=== PATIENT | male | born 1945 | race Caucasian/White ===

== ENCOUNTER 2018-11-15 14:00 | Outpatient (RCR) | payer SELFPAY ==
--- NOTE | 2018-11-15 08:13 | HP.PTEVAL_ITS ---
Patient's Visit Information RABIA LUGO is a 73 year old M referred to Physical Therapy by Ed Vick with a diagnosis of Lumbar fusion.. Date of Evaluation: 11/08/18 Physical Therapist: Neil Bauer DPT - Visit Plan Frequency: 2x /Week Duration: 6-8 weeks Plan: Start with core strengthening, BLE strengthening, HS stretching in aquatic setting. Progress fucntional mobility and lumbar ROM as tolerated. Pt. does not swim so tend to stay in shallow end of pool. - Subjective Findings: Pt is here today for his initial evaluation with diagnosis of multiple level fusion of lumbar spine. Pt. reports having surgery 3 weeks ago. 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 Pt. is aware of restrictions since surgery and reprots he has been adhering to them. Pt. has minimal pain 2/10 since surgery. Pt. has a history of 3 lumbar spin surgeries. Pt. reports no N/T in either LE. Pt. - Pain Lumbar spine Pain Intensity (Out of 10): 2 Pain Intensity Range: 1, 4 - Objective POSTURE: Pt. has slight flexed posture. Pt. has normal iliac crest heights. Pt. has slight anterior tilt of pelvis. WIde DAREN in stance. PALPATION: Pt. has 10 incisions in lumbar spine, all appear to be healed, No signs of infection. Pt. has mild tenderness along lumbar spine. NEURO: all intact, normal sensation and normal DTR of BLEs. Pt. is able to rise on heels and toes without LOB. ROM: Pt. has normal ankle and knee ROM. Pt. has tight HS bilaterally. Pt. has mod loss of ROM of lumbar spine throuhgout. MMT: RLE- ankle- 5/5 throughout; knee- ext 4+/5, flexion 4+/5; hip- flexon 4/5, abd 4/5, ext 4/5. LLE- ankle 5/5 throughout; knee- ext 4+/5, flexion 4/5; hip- flexion 4/5, abd 4/5, ext 4/5. GAIT: Pt. ambulates without AD, but does have cane at home. Pt. has slight flexed posture with slight anterior tilf of his pelvis. Pt. is able to increase erect posture with VCing. Pt. has slight increase in DAREN. STAIRS: Pt. is able to complete with BHR and step to pattern. - Goals Goal 1:: Pt. to be I with HEP. Goal Time Frame: 6-8 Weeks Goal 2:: Pt. to have increased BLE and core strength by 1/2 grade of all effected musculature to reduce stress applied to lumbar spine with all functional mobility. Goal Time Frame: 6-8 Weeks Goal 3:: Pt. to sleep throughout the night without increase in symptoms. Goal Time Frame: 4-6 Weeks Goal 4:: Pt. to ambulate with out AD with improve gait pattern unlimited distances withotu increase in symptoms. Goal Time Frame: 4-6 Weeks Goal 5:: Pt. to have increased lumbar ROM by 25% in all directions without increase in symptoms. Goal Time Frame: 6-8 Weeks Goal 6:: Pt. to negotiate steps with 1 HR with reciprocal pattern without increase in symptoms. Goal Time Frame: 4-6 Weeks - Rehabilitation Potential Physical Therapy Diagnosis: Pt. has signs and symptoms consistent with multiple level lumbar fusion. Pt. has subsequent hypomobility, core/BLE weakness, imbalance. Pt. would benefit from PT to increase core stability, wean from brace, increased BLE strength and slowly increase lumbar ROM as tolerated. Start in aquatic setting, due to patient having a history of B knee OA and decreased core stability. Rehabilitation Potential: Good - Anticipated Interventions Patient/Client Instruction: Educate patient on: Condition, Plan of Care, Risk Factors, Benefits of Fitness Program For the Purpose of:: To improve safety, To improve health and function, To foster healthy habits, To improve decision making, To facilitate caregiver knowledge, To improve self management, To prevent re-injury, To improve ability to perform tasks related to life management, To improve tolerance to ADL's Therapeutic Exercise to Include: Strength training, Power training, Endurance training, Balance training, Coordination, Postural training, Flexibilty training, Gait and locomotor training, Passive ROM, Active ROM, Dynamic Lumbar Stabilization, Scapular Strength/Stabilization For the Purpose of:: To decrease pain, To increase ROM, To improve nutrient delivery to tissue, To increase oxygenation perfusion, To improve muscle performance and motor function, To improve ability to perform ADL's, To increase tolerance to activity/condition/position, To improve performance and independence with ADL's, To decrease level of supervision to perform tasks, To improve ability of physical actions for home/community/work/leisure, To improve gait and locomotor functions, To improve health of tissue, To decrease soft tissue restriction, To improve endurance, To improve balance, To improve safety with gait Thank you for the opportunity to evaluate your patient. For Medicare and Medicare HMO plans, please review the plan of care and approve it. It will need to be FAXED BACK to us at [phone] for Medicare purposes. For Medicare only, by signing this I certify the plan of care. Please let me know if there are questions or concerns regarding this plan of care. Physician Signature: Date:
--- OUTSIDE RECORDS SUMMARY | 2018-12-24 21:57 | XMS RPT_ITS ---
:1945 Author Organization OHIP Care Team Providers Name Role Phone ZA CARRERA Admitting Unavailable ZA CARRERA Attending Unavailable ZA CARRERA Primary Care Unavailable DELLA PATEL MD Consulting Unavailable PROVIDER, UNKNOWN Consulting Unavailable PROVIDER, UNKNOWN Consulting Unavailable PROVIDER, UNKNOWN Consulting Unavailable [facility] Admitting Unavailable [facility] Attending Unavailable [facility] Primary Care Unavailable DELLA PATEL MD Consulting Unavailable PROVIDER, UNKNOWN Consulting Unavailable PROVIDER, UNKNOWN Consulting Unavailable PROVIDER, UNKNOWN Consulting Unavailable DR VICKEY PATEL C Admitting Unavailable JORGE, DR VICKEY Loera Attending Unavailable JORGE, DELLA PEREA Referring Unavailable JORGE, DR VICKEY Loera Primary Care Unavailable JORGE, DELLA PEREA Consulting Unavailable PROVIDER, UNKNOWN Consulting Unavailable PROVIDER, UNKNOWN Consulting Unavailable PROVIDER, UNKNOWN Consulting Unavailable Debi, Za Attending Unavailable Debi, Za Referring Unavailable Della Patel Primary Care Unavailable Debi, Za Reagan Attending Unavailable Flood, Za A. Primary Care Unavailable Carmelo, Za A. Consulting Unavailable Debi, Za Reagan Admitting Unavailable Unavailable, Family Physician Attending Unavailable Flood, Za A. Primary Care Unavailable Flood, Za A. Consulting Unavailable Debi, Za Reagan Attending Unavailable Flood, Za A. Primary Care Unavailable Flood, Za A. Consulting Unavailable PROBLEMS PROBLEMS DATE TYPE CONDITION / CODE ATTENDING STATUS SOURCE 12/02/2018 Unknown Z98.1 - DebiaZ lai Diana Arthrodesis Community status / Hospital Z98.1(ICD-10) Repository 08/22/2018 Admitting Low back pain / DEBI, ZA Abel Active Flaco Pomerene Diagnosis M545(ICD-10) [facility] Repository 08/22/2018 Principle Low back pain / DEBI, ZA R Active Flaco Pomerene Diagnosis M545(ICD-10) [facility] Repository PROCEDURES PROCEDURES No Procedure Records FoundRESULTS RESULTS INITAL EVALUATION (1) Observed: 11/15/2018 Status: F Source: [place] - PT 8:13 AM [facility] REPOSITORY [facility] [address] [place] [address]. [address] [place] [address] Fax REHABILITATION SERVICES INITIAL EVALUATION MR#: [id number] Acct: [id number] Name: RABIA LUGO Rep #: [id number] : 1945 73 From: Neil Bauer DPT Referring Dr.: Za Carrera Status: REG RCR [facility] [employer] Patient's Visit Information RABIA LUGO is a 73 year old M referred to Physical Therapy by Za Carrera with a diagnosis of Lumbar fusion.. Date of Evaluation: 11/08/18 Physical Therapist: Neil Bauer, DPT - Visit Plan Frequency: 2x /Week Duration: 6-8 weeks Plan: Start with core strengthening, BLE strengthening, HS stretching in aquatic setting. Progress fucntional mobility and lumbar ROM as tolerated. Pt. does not swim so tend to stay in shallow end of pool. - Subjective Findings: Pt is here today for his initial evaluation with diagnosis of multiple level fusion of lumbar spine. Pt. reports having surgery 3 weeks ago. 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 Pt. is aware of restrictions since surgery and reprots he has been adhering to them. Pt. has minimal pain 2/10 since surgery. Pt. has a history of 3 lumbar spin surgeries. Pt. reports no N/T in either LE. Pt. - Pain Lumbar spine Pain Intensity (Out of 10): 2 Pain Intensity Range: 1, 4 - Objective POSTURE: Pt. has slight flexed posture. Pt. has normal iliac crest heights. Pt. has slight anterior tilt of pelvis. WIde DAREN in stance. PALPATION: Pt. has 10 incisions in lumbar spine, all appear to be healed, No signs of infection. Pt. has mild tenderness along lumbar spine. NEURO: all intact, normal sensation and normal DTR of BLEs. Pt. is able to rise on heels and toes without LOB. ROM: Pt. has normal ankle and knee ROM. Pt. has tight HS bilaterally. Pt. has mod loss of ROM of lumbar spine throuhgout. MMT: RLE- ankle- 5/5 throughout; knee- ext 4+/5, flexion 4+/5; hip- flexon 4/5, abd 4/5, ext 4/5. LLE- ankle 5/5 throughout; knee- ext 4+/5, flexion 4/5; hip- flexion 4/5, abd 4/5, ext 4/5. GAIT: Pt. ambulates without AD, but does have cane at home. Pt. has slight flexed posture with slight anterior tilf of his pelvis. Pt. is able to increase erect posture with VCing. Pt. has slight increase in DAREN. STAIRS: Pt. is able to complete with BHR and step to pattern. - Goals Goal 1:: Pt. to be I with HEP. Goal Time Frame: 6-8 Weeks Goal 2:: Pt. to have increased BLE and core strength by 1/2 grade of all effected musculature to reduce stress applied to lumbar spine with all functional mobility. Goal Time Frame: 6-8 Weeks Goal 3:: Pt. to sleep throughout the night without increase in symptoms. Goal Time Frame: 4-6 Weeks Goal 4:: Pt. to ambulate with out AD with improve gait pattern unlimited distances withotu increase in symptoms. Goal Time Frame: 4-6 Weeks Goal 5:: Pt. to have increased lumbar ROM by 25% in all directions without increase in symptoms. Goal Time Frame: 6-8 Weeks Goal 6:: Pt. to negotiate steps with 1 HR with reciprocal pattern without increase in symptoms. Goal Time Frame: 4-6 Weeks - Rehabilitation Potential Physical Therapy Diagnosis: Pt. has signs and symptoms consistent with multiple level lumbar fusion. Pt. has subsequent hypomobility, core/BLE weakness, imbalance. Pt. would benefit from PT to increase core stability, wean from brace, increased BLE strength and slowly increase lumbar ROM as tolerated. Start in aquatic setting, due to patient having a history of B knee OA and decreased core stability. Rehabilitation Potential: Good - Anticipated Interventions Patient/Client Instruction: Educate patient on: Condition, Plan of Care, Risk Factors, Benefits of Fitness Program For the Purpose of:: To improve safety, To improve health and function, To foster healthy habits, To improve decision making, To facilitate caregiver knowledge, To improve self management, To prevent re-injury, To improve ability to perform tasks related to life management, To improve tolerance to ADL's Therapeutic Exercise to Include: Strength training, Power training, Endurance training, Balance training, Coordination, Postural training, Flexibilty training, Gait and locomotor training, Passive ROM, Active ROM, Dynamic Lumbar Stabilization, Scapular Strength/Stabilization For the Purpose of:: To decrease pain, To increase ROM, To improve nutrient delivery to tissue, To increase oxygenation perfusion, To improve muscle performance and motor function, To improve ability to perform ADL's, To increase tolerance to activity/condition/position, To improve performance and independence with ADL's, To decrease level of supervision to perform tasks, To improve ability of physical actions for home/community/work/leisure, To improve gait and locomotor functions, To improve health of tissue, To decrease soft tissue restriction, To improve endurance, To improve balance, To improve safety with gait Thank you for the opportunity to evaluate your patient. For Medicare and Medicare HMO plans, please review the plan of care and approve it. It will need to be FAXED BACK to us at [phone] for Medicare purposes. For Medicare only, by signing this I certify the plan of care. Please let me know if there are questions or concerns regarding this plan of care. Physician Signature: Date: <Electronically signed by Neil Bauer DPT> 11/15/18 0813 CC: Della Patel MD; Za Carrera CLS Signed CV VENOUS LEG LT Observed: 10/18/2018 Status: F Source: [facility] [place] 10:20 AM [place] [address] Patient: RABIA LUGO Phone#: : 1945 Age: 73 Gender: M Pt. Type: ER Account: [id number] Location: [facility] Ordering: VICKEY PATEL Exam Date: 10/18/2018/10:57 Family Phys: DELLA PATEL Charge Code: [id number] Physician: Powell Order #: [id number] DLP Dose#: PROCEDURE: VENOUS DOPPLER LT LEG COMPARISON: None. INDICATIONS: Pain TECHNIQUE: Color duplex Doppler ultrasound evaluation analysis was performed in the usual manner. CLIENT RENEWAL SPECIALIST: ROZ RISK FACTORS FOR VENOUS DISEASE: Recent surgery Other Pain EXAMINATION: RIGHT +Present -Reduced o Absent LEFT SPONT PHASIC AUG REFLUX COMP SPONT PHASIC AUG REFLUX COMP + + + o + CFV + + + o + SFJ + FV (prox) + + + o + FV (mid) + FV (dist) + POP V + + + o + T/P TRUNK + + + o + PTV + + + o + PERONEAL V + + + o + GSV + GASTROC SOLEAL V Continued Report - Page 2 of 2 Patient: RABIA LUGO Phone#: : 1945 Age: 73 Gender: M Pt. Type: ER Account: [id number] Location: 052 Ordering: VICKEY PATEL Exam Date: 10/18/2018/10:57 Family Phys: DELLA PATEL Charge Code: [id number] Physician: Powell Order #: [id number] DLP Dose#: CLIENT RENEWAL SPECIALIST'S NOTES: FINDINGS: THROMBI: None visible. COMPRESSIBILITY: Normal. OTHER: Negative. CONCLUSION: 1. There is no evidence of superficial or deep vein thrombus. Dictated by: Vania Dean MD on 10/18/2018 at 10:26 Approved by: Vania Dean MD on 10/18/2018 at 10:26 EMERGENCY REPORT Observed: 10/18/2018 Status: F Source: [facility] 8:54 AM [facility] EMERGENCY ROOM REPORT NAME ACCOUNT SEX AGE ADMIT DISCHARGE PT MED. RECORD# NUMBER DATE DATE TYPE PARISH, [id number] M 73 10/18/18 10/18/18 3 RABIA L [id number] ROOM: ER DATE OF : 1945 DICTATING PHYSICIAN: Vickey Patel CHIEF COMPLAINT: Left hip and leg pain. HISTORY OF PRESENT ILLNESS: The patient states about 2-1/2 weeks ago he had lumbar fusion surgery to his lower back. Over the last 3 days, he has been having more pain to his left leg and hip area. He has not noticed swelling. It basically came on after he did more sitting the day before, as he went to a . He is concerned about the possibility of a blood clot, and his family doctor told him to go to the ED to rule out a blood clot. No injury or trauma. No bowel or bladder symptoms. The pain is radiating down the back of his leg. He is able to ambulate. No new injury or trauma. PAST MEDICAL HISTORY: Significant for hypertension. PAST SURGICAL HISTORY: Recent lumbar fusion surgery as mentioned. MEDICATIONS: Per medication reconciliation list, including Percocet for pain. ALLERGIES: Sulfa and Cipro. SOCIAL HISTORY: He is Christian and lives at home, accompanied here with his . He does not smoke or drink alcohol. PHYSICAL EXAMINATION: This is a 73-year-old pleasant male who is alert and appropriate. He does not appear toxic. His skin is pink, warm and dry. Vital signs: Temperature is 97, pulse 83, respirations 16, and blood pressure 168/78. His lungs are clear. Cardiac examination is normal. Examination of the back reveals healing incisions to the paralumbar area bilaterally. There is no redness, bruising, ecchymosis or soft tissue swelling. He does not have any drainage from those areas. No appreciable tenderness to that area. He is able to move his extremities appropriately. Deep tendon reflexes are quite diminished, trace bilaterally. He does not have any redness or swelling to his extremities. Generally good peripheral pulses and capillary refill. Abdomen is soft and nontender. DIAGNOSTIC DATA: We did proceed to get a left leg venous Doppler, which was negative for any DVT. EMERGENCY DEPARTMENT COURSE AND TREATMENT: I feel that this is probably Page 1 of 2 RABIA LUGO Emergency Room Report more inflammatory in nature and not likely infectious or cardiovascular related. I did give him a 3-day course of prednisone 40 mg daily. He is to follow up with his family physician or surgeon in the next 2 or 3 days if the symptoms persist, returning if symptoms get worse. DIAGNOSIS: Increasing postoperative pain. Dictated By: Vickey Patel MD 10/18/18 11:08 JOB #: [id number] Transcribed By: jayjay 10/18/18 11:29 Electronically signed by: GERRY Patel M.D. 10/21/18 07:29 Page 2 of 2 RABIA LUGO Emergency Room Report CBC W/DIFF Collected: 10/01/2018 Status: F Source: [facility] 5:38 AM [facility] REPOSITORY Order Comment: CONSERVATION TYPE CODE TESTS RESULT OUT OF RANGE REFERENCE UNITS LAB L200.98287 3.9-11.0 K/uL Normal WBC 9.2 LAB L200.44874 3.5-5.5 M/uL Normal RBC 3.69 LAB L200.16804 14.0-16.5 g/dL Low HGB 10.0 Result Comment: Delta: 12.4 on 09/24/18-1318 LAB L200.87075 39.0-55.0 % Low HCT 31.5 LAB L200.95245 80.0-100.0 fL MCV Normal 85.4 LAB L200.04776 25.4-34.6 pg MCH Normal 27.1 LAB L200.74742 31.5-36.5 g/dL MCHC Normal 31.7 LAB L200.44271 11.5-14.5 % RDW Normal 13.8 LAB L200.38268 140-440 K/uL PLT Normal 240 LAB L200.55864 8.7-12.4 fL MPV Normal 10.2 LAB L200.27588 % NEUTROPHILS Normal % 89.3 LAB L200.56557 % IG % Normal 0.7 LAB L200.04260 % LYMPH % Normal 6.8 LAB L200.43475 % MONOCYTE % Normal 3.2 LAB L200.27278 % EOSINOPHIL Normal % 0.0 LAB L200.07932 % BASOPHIL % Normal 0.0 LAB L200.94828 1.4-6.6 K/uL NEUTROPHIL High ABS 8.2 LAB L200.17280 0-0.05 K/uL IG ABS High 0.06 LAB L200.34293 1.2-3.5 K/uL Low LYMPH ABS 0.6 LAB L200.00255 0.0-1.0 K/uL MONO ABS Normal 0.3 LAB L200.49909 0.0-0.5 K/uL EOS ABS Normal 0.0 LAB L200.08641 0.0-0.2 K/uL BASO ABS Normal 0.0 LAB L200.94532 0-0.2 /100 WBC NRBC % Normal 0.0 LAB L200.29885 0-0.012 K/uL NRBC # Normal 0.000 Performed By: #### L200.81616 #### Test performed at: [place] [address] BASIC MET PANEL Collected: 10/01/2018 Status: F Source: [facility] 5:38 AM [facility] REPOSITORY Order Comment: CONSERVATION TYPE CODE TESTS RESULT OUT OF RANGE REFERENCE UNITS LAB L500.97818 136-145 mmol/L Normal NA 141 LAB L500.23396 3.5-5.1 mmol/L Normal K 4.6 LAB L500.64888 98-107 mmol/L Normal CL 105 LAB L500.91719 21-32 mmol/L Normal CO2 27 LAB L500.70539 6-18 Normal AGAP 14 LAB L500.01092 74-106 mg/dL High GLU 169 LAB L500.88522 7-18 mg/dL Normal BUN 10 LAB L500.69022 0.700-1.300 mg/dL Normal CREAT 0.763 LAB L500.62945 270-300 mosm/kg Normal OSM 295 LAB L500.81679 8.5-10.1 mg/dL Normal CA 8.5 Performed By: #### L500.48223, L500.38158, L500.16272 #### Test performed at: [place] [address] EST. CREAT CLR Collected: 10/01/2018 Status: F Source: [facility] 5:38 AM [facility] REPOSITORY Order Comment: CONSERVATION TYPE CODE TESTS RESULT OUT OF RANGE REFERENCE UNITS LAB L500.19292 ML/MIN Normal EST. 109.545 CREAT CLR Result Comment: This result is an ESTIMATED blood creatinine clearance value which is derived from the patient age, sex, weight, and previous blood creatinine result. Performed By: #### L500.73977, L500.88118, L500.20000 #### Test performed at: [place] [address] GFR ESTIMATE Collected: 10/01/2018 Status: F Source: [facility] 5:38 AM [facility] REPOSITORY Order Comment: CONSERVATION TYPE CODE TESTS RESULT OUT OF RANGE REFERENCE UNITS LAB L500.56265 > 60 Normal IF non-AFR > 60 AMER LAB L500.40998 > 60 Normal IF > 60 AMER Result Comment: eGFR (Estimated GFR) Units of measure:mL/min/1.73 meters sq. *CALCULATION REVISED 09/14/2015;IDMS-traceable MDRD equation eGFR is derived from the reexpressed MDRD Study equation using the following parameters: serum creatinine, age, gender and race. An eGFR<60 mL/min/1.73m2 for >3 months is consistent with chronic kidney disease. Refer to KDOQI guidelines for clinical interpretation. Performed By: #### L500.39900, L500.06929, L500.50111 #### Test performed at: [place] [address] TS Collected: 09/30/2018 Status: F Source: [facility] 8:17 AM [facility] REPOSITORY Order Comment: CONSERVATION CBN: NO [place]: MAIN Transfusion Status: CONSERVATION Blood Bank service requested: TYPE AND SCREEN Comments To Phleb: IN HOLDING AREA TYPE CODE TESTS RESULT OUT OF RANGE REFERENCE UNITS LAB B100.0400 A Normal BLOOD TYPE POSITIVE LAB B100.0680 Normal ANTIBODY NotDone SCREEN Result Comment: TYPE AND SCREEN PERFORMED IN [facility] ON 09.24.18. Performed By: #### B100.0200 #### Test performed at: [place] [address] OPERATIVE REPORT Observed: 09/30/2018 Status: F Source: [facility] 12:00 AM [facility] REPOSITORY NAME: RABIA LUGO MR#: [id number] SURGEON: Za Carrera MD DATE OF SURGERY: 09/30/2018 OPERATIVE REPORT PROCEDURES: 1. Anterior lumbar interbody fusion, L2-L3. 2. Anterior lumbar interbody fusion, L3-L4. 3. Anterior lumbar interbody fusion, L4-L5. 4. Anterior lumbar interbody fusion, L5-S1. 5. Placement of interbody cage lumbar interspace L2-L3. 6. Placement of interbody cage lumbar interspace L3-L4. 7. Placement of interbody cage lumbar interspace L4-L5. 8. Placement of interbody cage lumbar interspace, L5-S1. 9. Bone marrow aspiration L4 and L5 vertebrae. 10.Use of allograft bone graft. PREOPERATIVE DIAGNOSES: 1. 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 2. Lumbar scoliosis with lumbar degenerative spinal stenosis. POSTOPERATIVE DIAGNOSES: 1. 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 2. Lumbar scoliosis with lumbar degenerative spinal stenosis. ANESTHESIA: General. INSTRUMENT COUNT: Sponge and counts correct. COMPLICATIONS: None. ESTIMATED BLOOD LOSS: Minimal. INSTRUMENTATION: Integrity. NARRATIVE: The patient was brought to the operating room. He successfully underwent endotracheal intubation and administration of general anesthesia. The patient was then carefully positioned on the radiolucent table. The area of the patient's lower back and left flank area were prepped and draped in the usual sterile manner. Fluoroscopy was used was used to help for skin incision placement. Incision was in oblique lateral incision for anterior aspect to the lumbar spine. Incision was made with #15 knife blade. Fascia was divided with electrocautery. Blunt retroperitoneal dissection was performed without [facility] PT NAME: RABIA LUGO MR#: [id number] [address] [place] [address] ACCT: [id number] : 47 OPERATIVE REPORT difficulty. A bone marrow was aspirated from the L4 and L5 vertebral bodies. This bone marrow was then concentrated down and mixed with allograft bone for the used in the interbody fusion. Initial disk space approach was the L5-S1 disk space. The ProMap probe as well as fluoroscopic guidance were used to determine the safe zone of entry within the L5-S1 disk space. Once this was determined, a guide pin was placed within the center of the disk space in both AP and lateral views. This was followed by disk dilation and finally placement of the disk working port, 5 mm within the disk space. We then proceeded with anterior diskectomy for interbody fusion using the disk cutters, end-plate leon, and disk extraction instrumentation. The adequacy of the disk and endplate removal in preparation was verified using a contrast filled balloon catheter. Approximately 80% of the disk space was prepared. Bone graft was then placed within the disk space. Further dilation to place the cage working port was then performed. Intraoperative sizer was placed. Appropriate size was determined. We then placed the cage in attention to 12.5 mm in height and 14 mm width. Excellent disk space height latter day was achieved and bilateral indirect neuroforaminal decompression. Blockade was placed along the anterior lumbar spine. Working port was removed. Next level of approach was L4-L5. The safe zone of entry was determined, followed by guide pin placement. Dilation was then occurred. Anterior lumbar interbody fusion, diskectomy for fusion was commenced using the disk cutters, end-plate leon and disk extraction instrumentation. The balloon catheter was used to determine the adequacy of the disk and endplate preparation. We then placed bone graft within the disk space for further dilation to allow the cage working port was placed. Intraoperative sizer was placed. A 12-sizer was found to provide excellent fit. Therefore, the expandable cage 12.5 Mm x 14 mm was placed. Excellent disk space height latter day was achieved. It should be noted that post expansion, additional bone graft placed at each level and then the disk space. Blockade was placed along the anterior lumbar spine. In a similar manner, the L3-L4 and L2-L3 disk spaces were approached. Diskectomies were performed and the bone graft was placed along with the expandable interbody cage. It was at the level of the 11 mm x 11.5 mm x 14 mm cages were placed. Post cage placement, additional bone graft was placed. We then also placed blockade along the anterior lumbar spine to prevent future fibrosis. Final AP and lateral fluoroscopic images revealed well placed construct. We then commenced with closure. This was performed in the usual manner. ZA CARRERA MD MRG/MODL/[id number] E/S: Za Carrera MD 10/21/18 1145 Electronically Signed [facility] PT NAME: RABIA LUGO MR#: [id number] [address] [place] [address] ACCT: [id number] : 47 OPERATIVE REPORT OPERATIVE REPORT Observed: 09/30/2018 Status: F Source: [facility] 12:00 AM [facility] REPOSITORY NAME: RABIA LUGO MR#: [id number] SURGEON: Za Carrera MD DATE OF SURGERY: 09/30/2018 OPERATIVE REPORT PROCEDURES: 1. Posterolateral fusion, L2-L3. 2. Posterolateral fusion L3-L4. 3. Posterolateral fusion, L4-L5. 4. Posterolateral fusion, L5-S1. 5. Lumbar laminectomy, facetectomies, and foraminotomies, L5, left. 6. Placement of segmental pedicle screw axel fixation, L2-S1. 7. Use of allograft bone graft. 8. Bone marrow aspiration, L3 and L2 vertebrae. PREOPERATIVE DIAGNOSES: 1. Failed back surgery syndrome, status post previous low back surgery done elsewhere. 2. Lumbar spinal stenosis. 3. Lumbar degenerative scoliosis. POSTOPERATIVE DIAGNOSES: 1. Failed back surgery syndrome, status post previous low back surgery done elsewhere. 2. Lumbar spinal stenosis. 3. Lumbar degenerative scoliosis. ANESTHESIA: General. COUNTS: Sponge and needle counts correct. COMPLICATIONS: None. ESTIMATED BLOOD LOSS: Minimal. INSTRUMENTATIONS: LSA. DESCRIPTION OF PROCEDURE: Patient had undergone anterior surgery and now was positioned prone for posterior surgery. The area of the patient's lower back was prepped and draped in usual sterile manner. Fluoroscopy was brought in. Fluoroscopy assisted with skin incision placement. Posterolateral percutaneous incisions were made for each level. At L5-S1, the incision was made. Jamshidi and subsequent K-wires were placed in the pedicles at L5-S1 as well as the L4, L3, and L2. Bone marrow was aspirated from the L2 and L3 vertebrae. This bone marrow was concentrated down mixed with allograft bone [facility] PT NAME: RABIA LUGO MR#: [id number] [address] [place] [address] ACCT: [id number] : 47 OPERATIVE REPORT for the posterolateral fusion. We then went over to the left side. Left- sided posterolateral incision was made using #15 knife blade. A small stab like incisions were made at each respective level. Jamshidi and K-wires were placed in the pedicles of S1, L5, L4, L3, and L2. We made a slightly more midline fascial incision on the left side. Tubular retractor was placed under serial dilation. Tubular retractor used was a 70 x 22 mm. Retractor was connected with flexible retractor arm. Direct visualization was possible. Redo laminectomy facetectomy and foraminotomy were performed at this level. This allowed for complete decompression of the exiting L5 and traversing S1 nerve roots on the left. Following diskectomy and decompression, blockade was placed along the lumbar spine. This of the dura to prevent future epidural fibrosis. The tubular retractor was then removed. We then proceeded to decorticate the posterolateral surfaces from L2-L3, down to L5-S1. This was done for the posterolateral fusion. Bone graft was placed along the posterolateral surfaces. Cannulated polyaxial pedicle screws were then placed on each respective K-wire. The K-wires were removed and the pedicle screws were fully seated. Axel length was determined. In addition, all pedicle screws were stimulated with EMG technique. All screws were found to be above threshold values. Top-loading rods and set screws were placed. The final set screw tightening, the extension sleeves were removed. This initially was done on the left side followed by the right. Final set screw placement, the tightening, the extension sleeves were all removed. Final AP and lateral fluoroscopic images revealed well placed construct. We then commenced with closure of the incision. This was done in the usual manner. Dry sterile dressings were then applied. ZA CARRERA MD MRG/MODL/[id number] E/S: Za Carrera MD 10/21/18 1145 Electronically Signed [facility] PT NAME: RABIA LUGO MR#: [id number] [address] [place], [place] [address] ACCT: [id number] : 46 OPERATIVE REPORT EKG Observed: 09/24/2018 Status: CANCELLED Source: STMikaela SPANN 1:18 PM [facility] REPOSITORY Acquired on 09/24/2018 1350 Vent. Rate : 059 BPM Atrial Rate : 059 BPM P-R Int : 166 ms QRS Dur : 104 ms QT Int : 386 ms P-R-T Axes : 053 063 057 degrees QTc Int : 382 ms Sinus bradycardia Otherwise normal ECG No previous ECGs available Referred By: Confirmed By: [id number] 2017 [facility] PT NAME: RABIA LUGO MR#: [id number] [address] [place], [place] [address] ACCT: [id number] : 46 EKG REPORT CHEST PA/AP & Observed: 09/24/2018 Status: F Source: [facility] LATERAL OR 2 VWS 1:18 PM [facility] REPOSITORY STUDY: CHEST PA/AP LATERAL OR 2 VWS; 09/24/2018 2:16 pm INDICATION: HTN. COMPARISON: None. ACCESSION NUMBER(S): [id number] ORDERING CLINICIAN: Za Carrera FINDINGS: The lungs are clear without pleural effusion. Normal heart size, mediastinum, clayton, and pulmonary vasculature. Thoracic degenerative changes. Aortic atherosclerosis with slight tortuosity. IMPRESSION: No active disease in the chest. CBC Collected: 09/24/2018 Status: F Source: [facility] 1:18 PM [facility] REPOSITORY Order Comment: CBN: YES Garrison: MAIN TYPE CODE TESTS RESULT OUT OF RANGE REFERENCE UNITS LAB L200.56635 3.9-11.0 K/uL Normal WBC 4.9 LAB L200.48641 3.5-5.5 M/uL Normal RBC 4.41 LAB L200.80224 14.0-16.5 g/dL Low HGB 12.4 LAB L200.95081 39.0-55.0 % Low HCT 38.7 LAB L200.09433 80.0-100.0 fL Normal MCV 87.8 LAB L200.40897 25.4-34.6 pg Normal MCH 28.1 LAB L200.44177 31.5-36.5 g/dL Normal MCHC 32.0 LAB L200.67605 11.5-14.5 % Normal RDW 14.0 LAB L200.90373 140-440 K/uL Normal PLT 306 LAB L200.78836 8.7-12.4 fL Normal MPV 10.8 LAB L200.13873 0-0.2 /100 WBC Normal NRBC % 0.0 LAB L200.01320 0-0.012 K/uL Normal NRBC # 0.000 Performed By: #### L200.37208 #### Test performed at: [place] [address] BASIC MET PANEL Collected: 09/24/2018 Status: F Source: [facility] 1:18 PM [facility] REPOSITORY Order Comment: CBN: YES [place]: MAIN TYPE CODE TESTS RESULT OUT OF RANGE REFERENCE UNITS LAB L500.89913 136-145 mmol/L Normal NA 139 LAB L500.79417 3.5-5.1 mmol/L Normal K 4.5 LAB L500.46392 98-107 mmol/L Normal CL 104 LAB L500.80182 21-32 mmol/L Normal CO2 28 LAB L500.83623 6-18 Normal AGAP 12 LAB L500.74016 74-106 mg/dL Normal GLU 79 LAB L500.91335 7-18 mg/dL Normal BUN 10 LAB L500.79847 0.700-1.300 mg/dL Normal CREAT 0.707 LAB L500.26822 270-300 mosm/kg Normal OSM 286 LAB L500.17264 8.5-10.1 mg/dL Normal CA 9.2 Performed By: #### L500.91908, L500.16848 #### Test performed at: [place] [address] GFR ESTIMATE Collected: 09/24/2018 Status: F Source: [facility] 1:18 PM [facility] REPOSITORY Order Comment: CBN: YES [place]: MAIN TYPE CODE TESTS RESULT OUT OF RANGE REFERENCE UNITS LAB L500.47136 > 60 Normal IF non-AFR > 60 AMER LAB L500.91239 > 60 Normal IF > 60 AMER Result Comment: eGFR (Estimated GFR) Units of measure:mL/min/1.73 meters sq. *CALCULATION REVISED 09/14/2015;IDMS-traceable MDRD equation eGFR is derived from the reexpressed MDRD Study equation using the following parameters: serum creatinine, age, gender and race. An eGFR<60 mL/min/1.73m2 for >3 months is consistent with chronic kidney disease. Refer to KDOQI guidelines for clinical interpretation. Performed By: #### L500.51609, L500.60687 #### Test performed at: [place] [id number] TSPAT Collected: 09/24/2018 Status: F Source: [facility] 1:18 PM [facility] REPOSITORY Order Comment: CBN: YES [place]: MAIN Transfusion Status: CONSERVATION Blood Bank service requested: TYPE AND SCREEN Specimen Comment: SURG 09/30 TYPE CODE TESTS RESULT OUT OF RANGE REFERENCE UNITS LAB B100.0400 A Normal BLOOD TYPE POSITIVE LAB B100.0680 Normal ANTIBODY NEGATIVE SCREEN Performed By: #### B100.0201 #### Test performed at: [place] [address] EKG Observed: 09/24/2018 Status: F Source: [facility] 1:18 PM [facility] REPOSITORY Acquired on 09/24/2018 1350 Vent. Rate : 059 BPM Atrial Rate : 059 BPM P-R Int : 166 ms QRS Dur : 104 ms QT Int : 386 ms P-R-T Axes : 053 063 057 degrees QTc Int : 382 ms Sinus bradycardia Otherwise normal ECG No previous ECGs available Confirmed by IAN PEREA, GENE Webb ([id number]) on 09/26/2018 9:08:27 AM Referred By: Confirmed By:GENE SOSA MD [id number] 2017 [facility] PT NAME: RABIA LUGO MR#: [id number] [address] [place] [address] ACCT: [id number] : 46 EKG REPORT PSA CANCER SCREENING Collected: 09/11/2018 Status: F Source: [facility] ([id number]) 9:35 AM [facility] REPOSITORY TYPE CODE TESTS RESULT OUT OF RANGE REFERENCE UNITS LAB PSA(LOINC) 0.00 - 4.00 ng/ml PSA <0.01 Performed By: #### [id number] #### [facility],[address] [place] [address] MR LUMBAR SP W/WO Observed: 08/22/2018 Status: F Source: [facility] NATARAJANAIYANA CONTRAST 4:38 PM [facility] REPOSITORY [place] [id number] Patient: PARISHRABAI Phone#: : 1945 Age: 73 Gender: M Pt. Type: Out Account: [id number] Location: Ordering: ZA MARTINEZUBB Exam Date: 08/22/2018/14:41 Family Phys: DELLA PATEL Charge Code: [id number] Physician: Powell Order #: [id number] DLP Dose#: PROCEDURE: MRI LUMBAR SPINE WITH AND WITHOUT CONTRAST COMPARISON: [facility], MR, LUMBAR SPINE W W/O CON, 08/17/2016, 18:19. INDICATIONS: Low back pain TECHNIQUE: A comprehensive examination was performed utilizing a variety of imaging planes and imaging parameters to optimize visualization of suspected pathology. Images were performed before and after the administration of intravenous gadolinium contrast. FINDINGS: PARASPINAL AREA: Normal with no visible mass. Left parapelvic renal cysts are present. BONES: No fracture, pars defect, or osseous lesion. Postsurgical changes are present on the right at the L4 and L5 pars. CORD/CAUDA EQUINA: Normal caliber, contour, and signal intensity. LUMBAR DISC LEVELS L1-L2: There is minimal retrolisthesis is similar to previous exam. There is mild annular disc bulging. The spinal canal is normal in caliber. There is mild bilateral foraminal narrowing. Disc space narrowing is present. L2-L3: There is disc space narrowing. There is minimal retrolisthesis. Mild annular disc bulging is present. There is mild right foraminal narrowing. L3-L4: Disc space narrowing is present. There is annular disc bulging more so to the right. There is moderate right foraminal narrowing. Left foramen is patent. There is mild spinal canal narrowing. L4-L5: There is narrowing at the L4-5 level. There is mild annular disc bulging. There is mild right foraminal narrowing. There is moderate left foraminal narrowing. L5-S1: Disc space narrowing is present. There is mild annular disc bulging. There is moderate right foraminal narrowing. There is moderate to severe left foraminal narrowing. CONCLUSION: 1. Post surgical changes are present at the right pars at L3 and L4. Postsurgical changes at the left pars at L5 similar to previous exam. Continued Report - Page 2 of 2 Patient: PARISH RABIACECI Tinsley Phone#: : 1945 Age: 73 Gender: M Pt. Type: Out Account: [id number] Location: Ordering: ZA CARRERA Exam Date: 08/22/2018/14:41 Family Phys: DELLA PATEL Charge Code: [id number] Physician: Powell Order #: [id number] DLP Dose#: 2. Multilevel degenerative changes present. There is diffuse disc space narrowing. Foraminal impingement is present at multiple levels. There is no evidence of acute disc herniation. There has been no significant change since prior exam. Dictated by: Vania Dean MD on 08/22/2018 at 18:23 Approved by: Vania Dean MD on 08/22/2018 at 18:23 BMP Collected: 08/16/2018 Status: F Source: [facility] 10:45 AM [facility] REPOSITORY TYPE CODE TESTS RESULT OUT OF REFERENCE UNITS RANGE LAB GLU(LOINC) 82-115 mg/dL Glucose Level 100 LAB NA(LOINC) 136-145 mEq/L Sodium Level 143 LAB K(LOINC) 3.5-5.0 mEq/L Potassium Level 4.3 LAB CL(LOINC) 98-110 mEq/L Chloride 109 LAB CO2(LOINC) 22-32 mEq/L CO2 25 LAB EBAL(LOINC 4.0-15.0 mEq/L ) Electrolyte Balance 9.0 LAB BUN(LOINC) 8.0-22.0 mg/dL BUN 16.0 LAB CRE(LOINC) 0.60-1.40 mg/dL Creatinine Lvl (s) 0.75 LAB BC(LOINC) 10.0-22.0 ratio BUN/Creatinine 21.3 Ratio LAB CA(LOINC) 8.4-10.1 mg/dL Calcium Lvl 8.8 Performed By: #### BMP, GFR #### [place] [address] .GFR Collected: 08/16/2018 Status: F Source: [facility] 10:45 AM [facility] REPOSITORY TYPE CODE TESTS RESULT OUT OF REFERENCE UNITS RANGE LAB GFRAA(LOINC ml/min/1.73 ) sqm GFR >60 Mauritian Result Comment: GFR Population mean for , Non- Americans Ages 20-29 = 116 mL/min/1.73 sq.m. Ages 30-39 = 107 mL/min/1.73 sq.m. Ages 40-49 = 99 mL/min/1.73 sq.m. Ages 50-59 = 93 mL/min/1.73 sq.m. Ages 60-69 = 85 mL/min/1.73 sq.m. Ages 70+ = 75 mL/min/1.73 sq.m. Chronic Kidney Disease: Less than 60 mL/min/1.73 square meters End Stage Renal Disease: Less than 15 mL/min/1.73 square meters LAB GFRNO(LOINC) ml/min/1.73sqm GFR Non- >60 Result Comment: GFR Population mean for , Non- Americans Ages 20-29 = 116 mL/min/1.73 sq.m. Ages 30-39 = 107 mL/min/1.73 sq.m. Ages 40-49 = 99 mL/min/1.73 sq.m. Ages 50-59 = 93 mL/min/1.73 sq.m. Ages 60-69 = 85 mL/min/1.73 sq.m. Ages 70+ = 75 mL/min/1.73 sq.m. Chronic Kidney Disease: Less than 60 mL/min/1.73 square meters End Stage Renal Disease: Less than 15 mL/min/1.73 square meters Performed By: #### BMP, GFR #### [place] [address] PSA Collected: 02/23/2018 Status: F Source: [facility] 8:51 AM [facility] TYPE CODE TESTS RESULT OUT OF REFERENCE UNITS RANGE LAB PSA(LOINC) 0.02-4.00 ng/mL Low Prostate <0.01 Specific Antigen Performed By: #### PSA #### [address] [address] ALLERGIES ALLERGIES DATE TYPE / CODE NAME / CODE REACTION SEVERITY SOURCE Drug SULFA Moderate Flaco Pomerene Allergy/4160 (sulfonamide) ([facility] 87997(SNOMED /42235285(RXN Modifier) Repository CT) ORM) (Qualifier Value) Drug CIPRO/5415428 Moderate Flaco Pomerene Allergy/4160 4(RXNORM) ([facility] 03605(SNOMED Modifier) Repository CT) (Qualifier Value) ENCOUNTERS ENCOUNTERS ADMIT/DISCHARGE ACCOUNT NUMBER ADMITTING ENCOUNTER LOCATION SOURCE CLASS 11/15/2018 [id number] [facility] 10/18/2018/10/18/[id number] JORGE [facility] [place] [address] Room: ERBed: [facility] Repository 09/30/2018/10/01/20 [id number] Za Carrera Inpatient [address] ng:Marcos6ARoom: Repository 622Bed: 01 09/30/2018 [id number] Ambulatory [address] [place] [address] Repository 09/24/2018 [id number] Ambulatory [facility] ng:[place] Repository 09/24/2018 [id number] Ambulatory [address] [place] [address] Repository 09/23/2018 [id number] Ambulatory [facility] ng:[place] Repository 09/11/2018/09/11/20 [id number] [place], Ambulatory [address] Repository 08/22/2018/08/22/20 [id number] ZA CARRERA Ambulatory [address] Repository PAYERS PAYERS ENCOUNTER GUARANTOR PAYER SUBSCRIBER SOURCE 11/15/2018 RABIA Granda Primary Insurance:[facility] RABIA Tayloroster [id number] TR [facility] TROYERDOB: [address], Number: [id number] [address]Ayk: [id number] Repository Date:2018-11-01 () 11/15/2018 Secondary NOT GIVENUNK [place] Insurance:SELF PAY [facility] Number: Effective Repository Date:2018-11-01 10/18/2018 RABIA Granda Primary RABIA Granda [facility] TROYERDOB: Insurance:CONGREGATION TROYERDOB: [facility] [id number] [facility] [id number] [facility] [address] Number: [address] Repository [address] [place] [address], Date: [address] [place] [address] [id number]: [place] [id number] (HP) 09/30/2018 RABIA Scales [id number] Insurance:ENTER NAME [address], Number: Repository [place] [address]Auk: [id number] Date:2018-09-30 (HP) TR [address] [place] [address]FU: 09/30/2018 [facility] Insurance:CommercialP TROYERDOB: [facility] olicy Number: [id number] Repository [facility] [id number] [address], Date:Plan Name:[address] [address]Ois: [place] [address]Jyk: (HP) (HP) 09/24/2018 RABIA Jesus Alberto [facility] RABIA Scales [id number] Insurance:ENTER NAME [address], Number: Repository [place] [id number]: [id number] Date:5001 TR () [address] [place] [address]TG: 09/24/2018 [facility]:Self TROYERDOB: [facility] PayPolicy Number: [id number] Repository [facility] [id number] [address], Date:Plan Name:[address] [address]Rqg: [place] [address]Yzh: (HP) (HP) 09/23/2018 [facility]AB[facility] Scales [id number] Insurance:ENTER NAME [facility] [place] OF INSURANCEPolicy Center [facility], Number: Repository [place] [address]Vaa: [id number] Date:5000 [address] () [address] [place] [address]DO: 08/22/2018 [facility] WESTDOB: Insurance:RADIOLOGY [facility]: [facility] [id number] PACKAGEPolicy Number: [id number] Effective Date: RD Repository [address] [place] [id number]: [place] [phone] ()
--- NOTE | 2019-07-07 07:08 | HP.PT.NRP ---
HP - Discharge Summary (1) - Patient Information RABIA LUGO was seen in my office for initial evaluation on 11/08/18. The following Plan of Care was established for this patient: Initial Frequency: 2x /Week Initial Duration: 6-8 weeks - Anticipated Interventions Patient/Client Instruction: Educate patient on: Condition, Plan of Care, Risk Factors, Benefits of Fitness Program For the Purpose of:: To improve safety, To improve health and function, To foster healthy habits, To improve decision making, To facilitate caregiver knowledge, To improve self management, To prevent re-injury, To improve ability to perform tasks related to life management, To improve tolerance to ADL's Therapeutic Exercise to Include: Strength training, Power training, Endurance training, Balance training, Coordination, Postural training, Flexibilty training, Gait and locomotor training, Passive ROM, Active ROM, Dynamic Lumbar Stabilization, Scapular Strength/Stabilization For the Purpose of:: To decrease pain, To increase ROM, To improve nutrient delivery to tissue, To increase oxygenation perfusion, To improve muscle performance and motor function, To improve ability to perform ADL's, To increase tolerance to activity/condition/position, To improve performance and independence with ADL's, To decrease level of supervision to perform tasks, To improve ability of physical actions for home/community/work/leisure, To improve gait and locomotor functions, To improve health of tissue, To decrease soft tissue restriction, To improve endurance, To improve balance, To improve safety with gait This patient was last seen in our office 11/15/18. Pertinent comments regarding their Physical therapy will appear below: Pt. was seen for 2 visits and has not been seen since. Pt. will be DC from PT at this point in time. At this point I will be discontinuing this patient from physical therapy. I would be happy to see this patient again in the future if found appropriate by the physician. Thank you! Neil Bauer DPT
== END 2018-11-15 19:00 | disposition home or self-care (01) ==
LOC: PT 14:00
PROVIDERS: Referring Provider Orthopaedic Surgery; Visit Provider Orthopaedic Surgery
DX: Z98.1 Arthrodesis status (principal)
CPT/HCPCS: 97113; 97162

== ENCOUNTER → 2024-12-17 | Outpatient (CLI) | payer OTHER, SELFPAY ==
--- NOTE | 2024-12-17 12:00 | NEURO_ITS ---
NCS and/or EMG Patient Report Ordering Doctor: Armando Das DATE OF SERVICE: 12/17/24 Jaziel presents for electrodiagnostic testing of the upper limbs. He reports numbness and tingling in the fourth and fifth digits of each hand. Electrodiagnostic findings: Median motor nerve demonstrates prolonged distal la tency with normal amplitude bilaterally. There is reduced median motor conduction velocity bilaterally. Prolonged median sensory latency at the wrist bilaterally. Ulnar motor nerve demonstrates normal distal latency and amplitude bilaterally. There is reduced ulnar motor conduction velocity and a significant drop in conduction across the elbow bilaterally. This is both measured at the abductor digiti minimi and first dorsal interosseous. Prolonged median and ulnar F-waves are noted. Absent right ulnar sensory latency at the wrist. Prolonged left ulnar sensory latency. Needle EMG testing was performed in the upper limbs. 1+ fibrillations noted in the right first dorsal interosseous. Motor unit action potentials with normal amplitude and duration. Electrodiagnostic impression: This is an abnormal study in the upper limbs 1. 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 This is consistent with an advanced bilateral cubital tunnel syndrome. 2. Electrodiagnostic findings suggestive of bilateral median mononeuropathy. This is consistent with a mild to moderate bilateral carpal tunnel syndrome. 3. No electrodiagnostic evidence is noted for cervical radiculopathy Multi Select Codes Neurology Neurology Interp Codes: 31557-27 Musc test done w/n test comp (interp) (2) and 66043-86 Nrv cndj test 11-12 studies (interp)
== END | disposition home or self-care (01) ==
PROVIDERS: PCP Family Medicine; Referring Provider Student in an Organized Health Care Education/Training Program; Visit Provider Student in an Organized Health Care Education/Training Program
DX: R20.2 Paresthesia of skin (principal)
CPT/HCPCS: 95886; 95913

== ENCOUNTER 2025-02-18 05:21 | Day surgery (SDC) | payer SELFPAY, OTHER ==
--- NOTE | 2025-01-26 13:57 | PAT.ANE_ITS ---
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 When Was Last Pacemaker Check QUESTION #4 FULL TEXT: You/Your Family Experience fever (hyperthermia) with Anesthesia Last Oral Intake Last Oral intake: Last Oral Intake NPO since Meds taken in AM with sips of water? 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 dietary service supervisor Female No 01/26/25 10:00 HX of Motion Sickness No 01/26/25 10:00 HX of N/V After Surgery No 01/26/25 10:00 Non-Smoker Yes 01/26/25 10:00 Duration of Surgery greater Yes 01/26/25 10:00 than 60 minutes Number of Risk Factors 2 01/26/25 10:00 PONV Score Moderate Risk 01/26/25 10:00 Height & Weight Height & Weight: Anesthesia: Height & Weight Height 5 ft 10 in 12/09/24 09:23 Respiratory Assessment Respiratory Assessment - kosher dietary service supervisor: Respiratory Tract Infection Hx - kosher dietary service supervisor Hx Respiratory Tract Infection No 01/26/25 10:00 STOP Sleep Apnea STOP Sleep Apnea - kosher dietary service supervisor: STOP Sleep Apnea - kosher dietary service supervisor Hx Hypertension Yes: on meds 01/26/25 10:00 Hx Sleep Apnea No 01/26/25 10:00 CPAP BIPAP Do you snore loudly (louder No 01/26/25 10:00 than talking or can be heard Do you often feel tired/ Yes 01/26/25 10:00 fatigued/ sleepy during daytime? Has anyone observed you stop No 01/26/25 10:00 breathing during sleep? STOP Results Positive 01/26/25 10:00 QUESTION #5 FULL TEXT : Do you snore loudly (louder than talking or can be heard through closed doors)? 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 Specify any problems Hx of Preganancy in last 3 N/A 01/26/25 10:00 Months Nurse Filling Out Transfusion JZOLLLUÍS 01/26/25 10:00 & Questions: Date: 01/26/25 01/26/25 10:00 Time: 10:05 01/26/25 10:00 Patient unable to answer at this time (ie. confused, unrespo /Reproduction History /Reproductive History - kosher dietary service supervisor: /Reproductive Hx- kosher dietary service supervisor Hx Now No 01/26/25 10:00 Gestational Age (in weeks): EDC: Hx Hx Para Hx Section SAB No 01/26/25 10:00 [facility] Medical History (Updated 01/26/25 @ 10:13 by Maria Guzman) Arthritis Ambulates with cane Non-smoker History of edema History of pulmonary embolism H/O prostate cancer h/o right knee replacement h/o back surgery h/o prostate removal HTN (hypertension) Home Medications ?Medication ?Instructions ?Recorded ?Last Taken ?Type amlodipine 5 mg tablet 5 mg PO DAILY 03/11/21 Unkno wn History cholecalciferol (vitamin D3) 25 25 mcg PO DAILY Unknown History mcg (1,000 unit) capsule gabapentin 300 mg capsule 300 mg PO QHS 03/11/21 Unkno wn History ibuprofen 200 mg tablet 200 mg PO Q6H PRN pain 03/11 Unknown History lisinopril 20 mg tablet 20 mg PO DAILY 03/11/21 Unkn own History omega-3 fatty acids 1,000 mg 1,000 mg PO DAILY 04/16/2 1 Unknown History capsule (Fish Oil Concentrate) rosuvastatin 10 mg tablet (Crestor) 5 mg PO DAILY 02/24 05/16 Unknown History apixaban 5 mg (74 tabs) tablets in 5 mg PO DIRECTED 12/09/24 Unknown History a dose pack (Eliquis DVT-PE Treat 30D Start) tramadol 50 mg tablet 50 mg PO TID 12/09/24 Unknow n History aspirin 325 mg tablet,delayed 325 mg PO BID 01/26/25 U nknown History release Allergy/AdvReac Type Severity Reaction Status Date / Time Sulfa (Sulfonamide Allergy unknown Verified 01/26/25 09:55 Antibiotics) ciprofloxacin (From Cipro) AdvReac Mild n/v Verified 01/26/25 09:55 Surgical History (Updated 01/26/25 @ 10:13 by Maria Guzman) History of prostatectomy Hx of ankle fusion History of back surgery Social History household members: spouse housing: house Smoking Status: Never smoker alcohol intake: never what type of physical activity do you participate in: none do you feel safe at home: Yes Audit: Pertinent Findings Pertinent Findings EKG Perinent findings: 07/03/2024 sinus tachycardia 103 bpm otherwise normal Additional pertinent findings: Chest CT to rule out PE 01/06/2025 no evidence of pulmonary embolus. Recommendation Anesthesia Recommendation Anesthesia recommendation: OPTIMIZED for anesthesia
[2025-02-18] VITALS (11 sets, daily range): BP systolic 98–147; BP diastolic 53–76; PULSE 56–76; RESP 15–18; TEMP 36.1–36.3; O2SAT 96–100; BMI 30.9
[2025-02-18] MEDS: 0.9% Normal Saline (1000mL) 1,000 ML 15 ML IV (06:22)
[2025-02-18 06:24] LABS: Bedside Glucose 92 mg/dL (74-106)
[2025-02-18] MEDS: Acetaminophen 500 MG Tablet 1000 MG PO (06:24)
[2025-02-18] MEDS: Magnesium 1 GM over 15 mins IV (06:24)
--- NOTE | 2025-02-18 06:59 | PRE.ANES_ITS ---
ASA Classification* ASA Classification ASA Classification: 2 Assessment & Plan Anesthesia* Anesthesia Assessment Anesthesia Assessment: Discussed sedation and/or anesthesia options, risks, benefits, and alternatives with patient/parents/legal guardian/POA. Questions invited. The patient/parents/legal guardian/POA seems to understand and agrees to proceed with anesthesia plan. Reviewed the physical assessment, medical history, allergy history and patient home medications list prior to surgery/procedure/anesthetic and documented any changes. Performed airway and anesthesia risk assessments. Anesthesia Type Anesthesia Type: General Anesthesia Focused Assessment* Temperature: 97.4 F Pulse Rate: 72 Blood Pressure: 147/76 Respiratory Rate: 18 Pulse Ox: 100 Airway Assessment Mouth opens: >3 cm Mallampati Score: II Focused Labs Anesthesia Preop lab: CBC CHEMISTRY POC Glucose 92 mg/dL (74-106) 02/18/25 05:53 02/18/25 COAG Pre-Assessment Diagnosis/Proposed Procedure Planned Operative Procedure(s): Left SI joint fusion Anesthesia History Anesthesia History - defect cutter: Anesthesia History - defect cutter Hx Hospitalization Yes: blood clots 07-03-24 01/26/25 10:00 Any Problems With Anesthesia No 01/26/25 10:00 Cholinesterase deficiency No 01/26/25 10:00 You/Your Family Experience No 01/26/25 10:00 fever (hyperthermia) with Relationship Recent Exposure to Contagious No 02/18/25 05:58 Disease Does patient have nerve No 01/26/25 10:00 stimulator Patient instructed to have device shut off --Does patient have Pacemaker No 02/18/25 06:00 or ICD? When Was Last Pacemaker Check QUESTION #4 FULL TEXT: You/Your Family Experience fever (hyperthermia) with Anesthesia Last Oral Intake Last Oral intake: Last Oral Intake NPO since 03:30 02/18/25 06:00 Meds taken in AM with sips of Yes 02/18/25 06:00 water? Meds patient instructed to take am of surgery PONV PONV - defect cutter: PONV - defect cutter Female No 01/26/25 10:00 HX of Motion Sickness No 01/26/25 10:00 HX of N/V After Surgery No 01/26/25 10:00 Non-Smoker Yes 01/26/25 10:00 Duration of Surgery greater Yes 01/26/25 10:00 than 60 minutes Number of Risk Factors 2 01/26/25 10:00 PONV Score Moderate Risk 01/26/25 10:00 Height & Weight Height & Weight: Anesthesia: Height & Weight Height 5 ft 10 in 02/18/25 06:00 Weight: 97.976 kg 02/18/25 06:00 Body Mass Index (BMI) 30.9 02/18/25 06:00 Respiratory Assessment Respiratory Assessment - defect cutter: Respiratory Tract Infection Hx - defect cutter Hx Respiratory Tract Infection No 01/26/25 10:00 STOP Sleep Apnea STOP Sleep Apnea - defect cutter: STOP Sleep Apnea - defect cutter Hx Hypertension Yes: on meds 01/26/25 10:00 Hx Sleep Apnea No 01/26/25 10:00 CPAP BIPAP Do you snore loudly (louder No 01/26/25 10:00 than talking or can be heard Do you often feel tired/ Yes 01/26/25 10:00 fatigued/ sleepy during daytime? Has anyone observed you stop No 01/26/25 10:00 breathing during sleep? STOP Results Positive 01/26/25 10:00 QUESTION #5 FULL TEXT : Do you snore loudly (louder than talking or can be heard through closed doors)? Tobacco Use History Tobacco Use History - defect cutter: Tobacco Use History - defect cutter Tobacco Use Smoking Status Never smoker 01/26/25 10:00 Hx Tobacco Use No 01/26/25 10:00 Years Smoking Packs Smoked per Day Smoking Cessation Date was within the last 15 years Hx Smoking Cessation Date Hx Smoking Cessation Counseling Hematologic Medial History Hematologic Hx - defect cutter: Hematologic Medical Hx - polarity tester Hx of Blood Transfusion No 01/26/25 10:00 Hx of Transfusion in last 3 No 01/26/25 10:00 Months Date of Last Transfusion (if within last 3 months) Ever experience any problems No 01/26/25 10:00 with transfusion(s)? Specify any problems Hx of Preganancy in last 3 N/A 01/26/25 10:00 Months Nurse Filling Out Transfusion JZOLLINGE 01/26/25 10:00 & Questions: Date: 01/26/25 01/26/25 10:00 Time: 10:05 01/26/25 10:00 Patient unable to answer at this time (ie. confused, unrespo /Reproduction History /Reproductive History - defect cutter: /Reproductive Hx- defect cutter Hx Now No 01/26/25 10:00 Gestational Age (in weeks): EDC: Hx Hx Para Hx Section SAB No 01/26/25 10:00 Active Medications Active Medications: Current Medications Generic Name Dose Route Start Last Admin Trade Name Freq PRN Reason Stop Dose Admin Acetaminophen 1,000 mg 02/18/25 07:30 02/18/25 06:24 Acetaminophen 500 Mg Tablet PO 02/18/25 07:31 1,000 mg X1 ONE Administration Cefazolin Sodium 2 gm/ N/A 20 mls @ 400 mls/hr 02/18/25 07:30 IV 02/18/25 07:32 PREOP ONE Tranexamic Acid 1,000 mg/ 110 mls @ 440 mls/hr 02/18/25 07:30 Sodium Chloride IV 02/18/25 07:44 X1 ONE Tranexamic Acid 1,000 mg/ 110 mls @ 440 mls/hr 02/18/25 07:30 Sodium Chloride IV 02/18/25 07:44 X1 ONE Magnesium Sulfate 1 gm/ 102 mls @ 408 mls/hr 02/18/25 07:30 02/18/25 06:24 Dextrose IV 02/18/25 07:44 408 mls/hr X1 ONE Administration Sodium Chloride 1,000 mls @ 15 mls/hr 02/18/25 05:35 02/18/25 06:22 IV 15 mls/hr .Q48H ESTRELLA Administration Insulin Human Lispro 1 - 6 unit 02/18/25 07:30 Insulin Lispro 100 Unit/Ml Insuln.Pen SC 02/18/25 18:00 Q4H PRN PRN BG>/= 180, SEE PROTOCOL Protocol PFSH Medical History Arthritis Ambulates with cane Non-smoker History of edema History of pulmonary embolism H/O prostate cancer h/o right knee replacement h/o back surgery h/o prostate removal HTN (hypertension) Home Medications ?Medication ?Instructions ?Recorded ?Last Taken ?Type amlodipine 5 mg tablet 5 mg PO DAILY 03/11/2102/18 03:30 History cholecalciferol (vitamin D3) 25 25 mcg PO DAILY 02/11/25 History mcg (1,000 unit) capsule gabapentin 300 mg capsule 300 mg PO QHS 03/11/2102/17 20:30 History ibuprofen 200 mg tablet 200 mg PO Q6H PRN pain 03/11 Unknown History lisinopril 20 mg tablet 20 mg PO DAILY 03/11/2101/25 07:00 History omega-3 fatty acids 1,000 mg 1,000 mg PO DAILY 1 02/11/25 History capsule (Fish Oil Concentrate) rosuvastatin 10 mg tablet (Crestor) 5 mg PO DAILY 02/2402/17/25 20:30 History apixaban 5 mg (74 tabs) tablets in 5 mg PO DIRECTED 12/09/24 02/11/25 History a dose pack (BawtequVarolii DVT-PE Treat 30D Start) tramadol 50 mg tablet 50 mg PO TID 12/09/24 03:30 History aspirin 325 mg tablet,delayed 325 mg PO BID 01/26/25 0 02/11/25 History release Allergy/AdvReac Type Severity Reaction Status Date / Time Sulfa (Sulfonamide Allergy unknown Verified 02/18/25 05:50 Antibiotics) ciprofloxacin (From Cipro) AdvReac Mild n/v Verified 02/18/25 05:50 Surgical History History of prostatectomy Hx of ankle fusion History of back surgery Social History household members: spouse housing: house Smoking Status: Never smoker alcohol intake: never what type of physical activity do you participate in: none do you feel safe at home: Yes Review of Systems (Anesthesia) ROS Narrative System reviewed and no additional complaints, except as documented.
--- NOTE | 2025-02-18 07:19 | HP.PCM_ITS ---
History and Physical MR#: [id number] Acct: [id number] Name: RABIA LUGO Rep #: [id number] : 1945 Provider: Dr. Quinn Medrano MD Age/Sex: 79/M Location: [facility] Status: Signed Intake Vital Signs 12/09/2508:23 Height 5 ft 10 in Intake Visit Reasons: LEFT HIP Chief Complaint: Preop Accompanied by: Is patient in pain?: Yes (Left SI Joint) Pain scale (1-10): 8 Allergies Sulfa (Sulfonamide Antibiotics) Allergy (Verified 02/12/25 08:46) unknownciprofloxacin (From Cipro) Adverse Reaction (Mild, Verified 02/12/25 08:46) n/v Medications ?Medication ?Instructions ?Recorded ?Confirmed ?Type amlodipine 5 mg tablet 5 mg PO DAILY 03/11/21 02/12/25 History cholecalciferol (vitamin D3) 25 25 mcg PO DAILY 03/11/21 02/12/25 Histor y mcg (1,000 unit) capsule gabapentin 300 mg capsule 300 mg PO QHS 03/11/21 02/12/25 History ibuprofen 200 mg tablet 200 mg PO Q6H PRN pain 03/11/21 02/12/25 History lisinopril 20 mg tablet 20 mg PO DAILY 03/11/21 02/12/25 History omega-3 fatty acids 1,000 mg 1,000 mg PO DAILY 03/11/21 02/12/25 Hist ory capsule (Fish Oil Concentrate) rosuvastatin 10 mg tablet (Crestor) 5 mg PO DAILY 03/11/21 02/12/25 History apixaban 5 mg (74 tabs) tablets in 5 mg PO DIRECTED 12/09/24 02/12/25 Hi story a dose pack (Eliquis DVT-PE Treat 30D Start) tramadol 50 mg tablet 50 mg PO TID 12/09/24 02/12/25 History aspirin 325 mg tablet,delayed 325 mg PO BID 01/26/25 02/12/25 History release Have you fallen in the past year?: No PFSH Medical History Arthritis Ambulates with cane Non-smoker History of edema History of pulmonary embolism H/O prostate cancer h/o right knee replacement h/o back surgery h/o prostate removal HTN (hypertension) Surgical History History of prostatectomy Hx of ankle fusion History of back surgery Social History household members: spouse housing: house Smoking Status: Never smoker alcohol intake: never what type of physical activity do you participate in: none do you feel safe at home: Yes HPI LEFT HIP Details: This documentation accurately reflects the service provided and the decisions made by me, Dr. Quinn Medrano MD 02/12/25 0840. Part of today?s visit was documented by Priyanka Balderrama RN, acting as scribe. RABIA LUGO is a 79 year old M here today for preop for scheduled Left sacroiliac joint fusion scheduled on 02-18-25. 01/01/25: RABIA LUGO is a 79 year old M here today for a followup on his lumbar spine MRI. Patient notes that he continues to have pain. Patients pain is over his left lower back/SI joint. He notes that after being up for awhile his entire low back hurts. He notes that he is unable to lay down due to his pain. He has to sit to sleep. Patient denies any numbness, tingling or radiating pain. Patient takes tramadol and every once in awhile he will take Excedrin. Patient denies any recent injections or physical therapy. 12/09/24: RABIA LUGO is a 79 year old M here today NEW patient for low back pain, referral from Dr. Fuentes. He states that he has been having the back pain for many years. He had a back surgery in March of 2022 and was pain free for 2 years. He started having pain again about a year ago. He states the surgeon and Dr. Fuentes feel the pain is coming from his SI joints and the surgeon he saw doesn't see anything with SI joints. He has seen Dr. Fuentes for injections as has given him an injection with anesthetic which helps but states that steroid doesn't. Dr. Fuentes also prescribes him Tramadol for pain. He denies radicular symptoms. Denies numbness, tingling or other associated symptoms. He states that he is unable to lay flat due to the pain. Says that if he sits for long periods of time his buttocks will get numb. He denies any PT. He did bring a disc with him today from [place] of a CT scan that he had done on 10/10/24. He has had a total of 4 back surgeries. He states that his bottom 5 vertebrae are fused and had rods and screws which was the surgery he had in March on 2021. He states that in March he did have a fusion of his ankle and was in a wheelchair for 3 months and once he was able to start weightbearing they found blood clots in his lungs in June and is now on Eliquis. Denies any balance issues over the last year and denies any leg weakness. Mentions he does have some finger numbness. Ortho Exam General General: Yes no acute distress Neurologic: Yes alert and Yes oriented x3 Spine SPINE TESTING CERVICAL THORACIC LUMBAR Musculoskeletal Strength 0=absent - 5=normal Details: Neurological exam of the lower extremities shows 5x5 power. Normal sensations across all dermatomes. No hyperreflexia. Physical examination shows a midline scar and multiple paramedian scars well healed. No midline tenderness, mild paraspinal tenderness left and right. Figure 4 and Gaenslen's positive on left. Coding Level of Care Code Off vis,est,level 4 Diagnoses Sacroiliitis M46.1 Time Spent (min) 35 Assessment and Plan Assessment and Plan (1) Sacroiliitis: Status: Acute Plan Again reviewed imaging. Imaging shows a prior fusion from L1-S1 with hardware and bone graft in good position. Right L4 screw seems to be the L3-4 disc, but does not add any instability. L1 screws bilaterally seem to be in good position but may be reaching the endplate at T12-L1. T12-L1 shows irregular endplates and kyphosis from adjacent segment degeneration causing proximal junctional kyphosis. Bilateral SI joints show sclerosis. MRI done recently does not show significant stenosis at the T12-L1 level. Postsurgical changes seen L1-S1 with postoperative seroma in the surgical bed. Again explained imaging findings in detail. Patient has pain which she points towards the PSIS bilaterally worse on the left side. Based on positive provocative pain from a Figure 4 test and Gaenslen's on the left side, discussed the probability of sacroiliitis. Patient was also had temporary improvement with SI joint injections by pain management. Explained the risks and benefits of the left SI fusion in detail. All risk benefits and alternatives were discussed in detail. The risks include but are not limited to infection, bleeding, hematoma formation, need for further surgery, screw malposition, pseud oarthrosis, hardware failure, persistent pain, nerve root injury, DVT, pulm embolism, difficulty ambulation, pneumonia, atelectasis, cardiopulmonary event. Patient understands and agrees to proceed with surgery. Consent was signed. 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 At this point the kyphosis and the disc degeneration do not seem to be causing him any mid back pain or any radicular pain towards the groin or lower abdomen. Explained to him that this may cause him some discomfort in the future.
[2025-02-18] MEDS: Cefazolin 2 GM in Syringe 10 ML IV (07:35)
--- NOTE | 2025-02-18 07:35 | RAD_ITS ---
EXAM: Intraoperative fluoroscopy for left sacroiliac joint fusion. CLINICAL HISTORY: Left sacroiliac joint fusion. COMPARISON: None. TECHNIQUE: Intraoperative fluoroscopy was performed for left sacroiliac joint fusion. Also, 18 fluoroscopic images were obtained. MARINA/S-I Jts 3 or More Views IMPRESSION: Intraoperative fluoroscopy was performed for left sacroiliac joint fusion. Also , 18 fluoroscopic images were obtained. Reading Location: [id number]
--- NOTE | 2025-02-18 07:35 | RAD_ITS ---
EXAM: Intraoperative fluoroscopy for left sacroiliac joint fusion. CLINICAL HISTORY: Left sacroiliac joint fusion. COMPARISON: None. TECHNIQUE: Intraoperative fluoroscopy was performed for left sacroiliac joint fusion. Also, 18 fluoroscopic images were obtained. RAD/O.R. Fluoro for C-Arm IMPRESSION: Intraoperative fluoroscopy was performed for left sacroiliac joint fusion. Also , 18 fluoroscopic images were obtained. Reading Location: [id number]
[2025-02-18] MEDS: TRANEXAMIC ACID 1,000 MG in 0.9% Normal Saline (100mL Bag) 100 ML 440 MG IV ×2 (07:40→08:51)
[2025-02-18] MEDS: Bupiv/Epi 0.25% 30 ML Vial (08:04)
--- NOTE | 2025-02-18 09:05 | OP.PCM_ITS ---
Procedures Musculoskeletal [id number]-29xxx: Other Procedure See Report Operative Report (Standard) Operative Information Date of Procedure: 02/18/25 Pre-Operative Diagnosis: Left sacroiliac joint arthritis Post-Operative Diagnosis: Same Surgery/Procedure Performed: Left sacroiliac joint fusion?percutaneous, lateral approach rod buster helper: Yes Geophysical Manager: Dimas Maya Tasks completed by or first assist registered nurse: Closing, Implanting device and Retracting Type of Anesthesia: General RN Documented Start/Stop Times: Operation Date: 02/18/25 07:30 Case Time Into Pre-Op 02/18/25 05:31 Out of Pre-Op 02/18/25 07:24 Anesthesia Start 02/18/25 07:30 Into Room 02/18/25 07:30 Procedure Start 02/18/25 08:04 Procedure Start Time: 08:04 Procedure Stop Time: 09:10 Select all DRAINS/GRAFTS/IMPLANTS that apply: Implanted device Implanted device details: Lauren SI joint lateral percutaneous fusion system Estimated Blood Loss: 40 cc Specimen collected: No Description of surgery: Preoperative diagnosis: Left sacroiliac joint arthritis/dysfunction Postoperative diagnosis: Same Name of procedure: Left sacroiliac joint fusion, percutaneous, lateral approach CPT 05102 Attending Surgeon: Dr. Quinn Medrano Estimated blood loss: 40 mL Anesthesia: General Implants: Lauren SI joint lateral percutaneous fusion system. Indications: Patient is a 79-year-old gentleman who presented with Left-sided low back pain and buttock pain. Imaging suggested left SI joint arthritis secondary to prior L1-S1 fusion and is adjacent joint degeneration. Clinical exam and diagnostic injections confirmed SI joint arthritis. All options of treatment were discussed which included continued nonoperative treatment measures like rest physical therapy, injections. After prolonged nonsurgical treatment, patient requested surgical intervention for microdiscectomy. All risks and benefits associated with the procedure were explained to the patient. The risks include but are not limited to infection, bleeding, injury to nerves and vessels, hematoma, persistent pain, numbness, nerve root injury or irritation, hardware failure, nonunion, difficulty ambulating, gait disturbances, adjacent joint degeneration in the hip or opposite SI joint or lower lumbar levels, stiffness, numbness around the incision, DVT, pulm embolism, pneumonia, atelectasis, cardiopulmonary event. Consent was signed. Procedure: The patient was identified in the preoperative holding suite using Unique patient identifiers. Skin was marked, consent was reviewed, and all questions were answered. The patient was then brought back to the operative room. A surgical timeout was performed to make sure correct procedure was being done on the correct patient and all operative room staff were on the same page. General endotracheal anesthesia was then given to the patient. The patient was then turned prone onto a flat Arash table over bolsters. All bony prominences were well-padded. The back was prepped and draped in usual fashion. Preoperative antibiotic was given. A final timeout was then again done just before starting the procedure. C-arm lateral view was utilized to identify the starting point on the [] side. Incision was taken. Steinmann pin was advanced into the iliac bone monitoring the trajectory to go towards the S1 body posterior inferior to this alar line and anterior to the posterior vertebral body line. Inlet and outlet views were then taken at this time and pin was advanced and was confirmed to be posterior to the anterior sacral wall on the inlet view and superior to the S1 foramen on the outlet view. Once adequate positioning of the pin was noticed, a measuring device was then used to measure the length of the screw to be used. Dilators were used and a retractor cannula was then inserted and tapped into the bone. Drill was used as the bone was found to be sclerotic especially at the SI joint line. 9.5 mm drill bit was used. 50 mm x 11.5 mm implant was then inserted under x-ray control in the outlet and left views. The Steinmann pin was left in place and a guide was utilized to be about 3 cm inferior going into the S2 body confirm the lateral view. Another Steinmann pin was then introduced into the S2 body in the lateral view and confirmed the inlet and outlet views to be in line with the initial S1 screw on the inlet view and between the S1 and S2 foramen on the outlet view. This was similarly measured for length and drilled with 9.5 mm drill and screw size of 35 x 9.5 mm implant was then placed under x-ray control. The guide was then used to place a screw between the S1 and S2 screw about 16 mm inferior to the initial screw. This was directed to the S1 foramen and stop short of the lateral border of the S1 foramen on the outlet view and parallel and superimposed on the inlet view with the other screws. This was again drilled with 7.5 mm drill and a 35 x 9.5 mm implant was placed under x-ray control making sure not to enter the S1 foramen. All pins were removed and final C-arm pictures and inlet outlet and lateral views were taken. All screws past the joint line as confirmed on contralateral outlet views. Thorough irrigation was given. Irrisept was kept in the wound for 1 minute and then rinsed. Closure was done in layers with 0 Vicryl for the deeper layers and 2-0 Vicryl for subcutaneous tissue, augmented with 4-0 Monocryl and Dermabond with 4 x 4 gauze and Tegaderm used as dressing. The patient was then turned supine onto a hospital bed. The patient was extubated and taken to PACU in stable condition. The patient tolerated the procedure well and no complications occurred. I was present for the entirety of the case and performed the surgery myself. Surgical Findings: See operative note Complications Complications: No
--- NOTE | 2025-02-18 09:30 | PCM.POST.ANE ---
Anesthesia: Postop Eval I Current Vital Signs Temperature: 97 F Pulse Rate: 64 Blood Pressure: 103/56 Respiratory Rate: 16 Pulse Ox: 100 Oxygen Delivery Method: Venturi Mask Oxygen Flow Rate (L/min): 6 Assessment Airway patent: Yes Spontaneous unlabored respirations: Yes Mental status: Awake nausea: No Vomiting: No Anesthesia Complication: No Fluid Hydration Crystalloid volume administer (ml): 1,200 Total IV fluid infused: 1,200 Progress Note Anesthesia document: Postop Eval 1 completed: Yes
[2025-02-18] MEDS: Ketorolac 15 MG/ML Vial IV (09:55)
--- NOTE | 2025-02-18 10:33 | POSTOPAN2_ITS ---
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 nausea No 02/18/25 09:31 FOILING MACHINE ADJUSTER.LMIL Vomiting No 02/18/25 09:31 FOILING MACHINE ADJUSTER.LMIL Anesthesia Postop Eval I: Fluid Summary Crystalloid volume administer 1,200 02/18/25 09:31 FOILING MACHINE ADJUSTER.LMIL (ml) Colloids volume administered ( ml) Blood Product volume administered (ml) Total IV fluid infused 1,200 02/18/25 09:31 FOILING MACHINE ADJUSTER.LMIL Anesthesia Postop Eval I: Summary Notes Anesthesia Complication No 02/18/25 09:31 FOILING MACHINE ADJUSTER.LMIL Anesthesia Complication Comment: Post-operative progress note Anesthesia: Postop Eval II Evaluation Mental status: Awake Pain Level: 3 nausea: No Vomiting: No
--- NOTE | 2025-02-18 10:33 | PCM.POSTANE2 ---
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 Spontaneous unlabored Yes 02/18/25 09:31 TRUCK RENTAL SERVICE ATTENDANT.LMIL respirations Mental status Awake 02/18/25 09:31 TRUCK RENTAL SERVICE ATTENDANT.LMIL nausea No 02/18/25 09:31 TRUCK RENTAL SERVICE ATTENDANT.LMIL Vomiting No 02/18/25 09:31 TRUCK RENTAL SERVICE ATTENDANT.LMIL Anesthesia Postop Eval I: Fluid Summary Crystalloid volume administer 1,200 02/18/25 09:31 TRUCK RENTAL SERVICE ATTENDANT.LMIL (ml) Colloids volume administered ( ml) Blood Product volume administered (ml) Total IV fluid infused 1,200 02/18/25 09:31 TRUCK RENTAL SERVICE ATTENDANT.LMIL Anesthesia Postop Eval I: Summary Notes Anesthesia Complication No 02/18/25 09:31 TRUCK RENTAL SERVICE ATTENDANT.LMIL Anesthesia Complication Comment: Post-operative progress note Anesthesia: Postop Eval II Evaluation Mental status: Awake Pain Level: 3 nausea: No Vomiting: No
[2025-02-18] MEDS: oxyCODONE 5 MG Tablet PO (10:58)
== END 2025-02-18 11:52 | disposition home or self-care (01) ==
LOC: SDC 05:21 → AC 05:22
PROVIDERS: PCP Family Medicine; Referring Provider Orthopaedic Surgery Orthopaedic Surgery of the Spine; Visit Provider Orthopaedic Surgery Orthopaedic Surgery of the Spine
PROC: (CPT 27279; principal; 2025-02-18 07:00)
DX: M46.1 Sacroiliitis, not elsewhere classified (principal); I10 Essential (primary) hypertension; Z79.899 Other long term (current) drug therapy
CPT/HCPCS: 27279; 01160; 72202; 76000; 82962; 86850; 86900; 86901; C1713; J2405; J3475